=== PATIENT | female | born 1995 | race Caucasian/White ===

== ENCOUNTER 2017-06-09 08:00 | Inpatient (IN) | payer BC ==
[~2017-06-09 08:00] MED LIST: Morphine PF 10 MG/10 ML SDV ONE; Oxytocin 10 Units/1 ML SDV ONE; ceFAZolin 1 GM Vial ONE
--- NOTE | 2017-06-09 10:29 | PCM.OPNOTE ---
- General Post-Op/Procedure Note Date of Surgery/Procedure: 06/09/17 Operative Procedure(s): Repeat low transverse Findings: Mild amount of scar tissue between the fascia and the rectus. Minimal scar tissue between the bladder and uterus. Baby boy in a vertex presentation with weight of 7 lbs 5 oz and APGARS of 8 & 9 Normal appearance of the uterus and ovaries bilaterally Pre Op Diagnosis: 39 weeks gestation. History of x2 Post-Op Diagnosis: As above Anesthesia Technique: Spinal Primary Surgeon: Lora Granados Secondary Surgeon: Girish Duffy Anesthesia Provider: Carlitos Walden Pathology: Cord blood collected. Placenta discarded. Fluid Replacement, Intraop: 1,500 Output, Urine Amount: 50 EBL in mLs: 600 Complications: None Condition: Good Free Text/Narrative:: The risks, benefits, indications, potential complications, and alternatives were explained to the patient and informed consent obtained. After induction of anesthesia, the patient was placed in a supine position and then draped and prepped in the usual sterile manner. A Pfannenstiel incision was made and carried down through the subcutaneous tissue to the fascia. Fascial incision was made and extended transversely. The fascia was from the underlying rectus tissue superiorly and inferiorly. The peritoneum was identified and entered. Peritoneal incision was extended longitudinally. The utero-vesical peritoneal reflection was incised transversely and the bladder flap was bluntly freed from the lower uterine segment. A low transverse uterine incision was made sharply with a scalpel and extended bluntly in a cephalocaudad direction. A baby boy was delivered from a vertex presentation with APGARS as above. After the umbilical cord was clamped and cut cord blood was obtained for evaluation. The placenta was removed intact and appeared normal. The uterus was exteriorized and cleared of clots. The uterine outline, tubes and ovaries appeared normal. The uterine incision was closed with running locked sutures of 0 Vicryl. Hemostasis was obtained by a second imbricating layer of 0 vicryl suture. The uterus was then placed back into the abdomen. The infracolic gutters were cleared of blood clots. The fascia was then reapproximated with running sutures of 0 Vicryl. The sucutaneous tissue was irrigated with sterile warm normal saline, hemostasis obtained with cautery. The skin was reapproximated with running Subcuticular 4 -0 monocryl sutures. Instrument, sponge, and needle counts were correct prior the abdominal closure and at the conclusion of the case.
[2017-06-09] MEDS ORDERED: Citric Acid/Sodium Citrate Solution 30 ML Cup PO ONE (10:34)
[2017-06-09] MEDS ORDERED: Metoclopramide 10 MG/2 ML SDV IVPUSH ONE (10:34)
[2017-06-09] MEDS ORDERED: ceFAZolin 2 GM in Premix Bag 1 BAG IV ONE (10:34)
[2017-06-09] MEDS ORDERED: Sodium Chloride 0.9% 10 ML Syringe FLUSH PRN (10:34)
[2017-06-09] MEDS ORDERED: Lactated Ringers 1,000 ML IV SCH (10:45)
[2017-06-09] MEDS ORDERED: Oxytocin/Lactated Ringers 10 UNIT/1,000 ML BAG IV SCH (10:45)
[2017-06-09] MEDS ORDERED: Phenylephrine/Normal Saline 100 MCG/ML 10 ML Syringe ONE (12:21)
[2017-06-09] MEDS ORDERED: Oxytocin 10 Units/1 ML SDV ONE (12:21)
[2017-06-09] MEDS ORDERED: Acetaminophen/oxyCODONE 325-5 MG Tab PO PRN (12:39)
[2017-06-09] MEDS ORDERED: Naloxone 0.4 MG/ML SDV IVPUSH PRN (12:39)
[2017-06-09] MEDS ORDERED: diphenhydrAMINE 50 MG/ML SDV IVPUSH PRN ×2 (12:39→12:42)
[2017-06-09] MEDS ORDERED: Lanolin 100% Cream 7 GM Tube TOP PRN (12:39)
[2017-06-09] MEDS ORDERED: Docusate Sodium 100 MG Cap PO PRN (12:39)
[2017-06-09] MEDS ORDERED: fentaNYL 100 MCG/2 ML SDV IVPUSH PRN (12:42)
[2017-06-09] MEDS ORDERED: Ketorolac 30 MG/ML SDV IVPUSH PRN (12:42)
--- NOTE | 2017-06-09 12:44 | PCM.POSTAN ---
POST ANESTHESIA ASSESSMENT - MENTAL STATUS Mental Status: alert, oriented - VITAL SIGNS Pulse Rate: 82 SaO2: 96 Resp Rate: 14 Blood Pressure: 103/57 Temperature: 36.3 C - RESPIRATORY Respiratory Status: respiratory rate WNL, airway patent, O2 saturation stable, supplemental oxygen - CARDIOVASCULAR CV Status: pulse rate WNL, blood pressure stable - GASTROINTESTINAL GI Status: no symptoms - PAIN Pain Score: 0 - POST OP HYDRATION Hydration Status: adequate & stable - OBSERVATIONS Free Text/Narrative:: no anesthesia complications noted
[2017-06-09] MEDS ORDERED: Dextrose 5%-Lactated Ringers 1,000 ML IV SCH (12:45)
--- NOTE | 2017-06-09 12:45 | PCM.PREANE ---
Preanesthetic Assessment - Anesthesia/Transfusion/Family Hx Anesthesia History: Prior Anesthesia Without Reaction Family History of Anesthesia Reaction: No Transfusion History: No Prior Transfusion(s) - Review of Systems General: No Symptoms Pulmonary: No Symptoms Cardiovascular: No Symptoms Gastrointestinal: No symptoms Neurological: No Symptoms Other: Reports: None - Physical Assessment NPO Status Date: 06/08/17 NPO Status Time: 22:30 Pulse: 82 O2 Sat by Pulse Oximetry: 96 Respiratory Rate: 14 Blood Pressure: 103/57 Temperature: 36.3 C Vital Signs: Last Vital Signs Temp 36.3 C 06/09/17 12:44 Pulse 82 06/09/17 12:44 Resp 14 06/09/17 12:44 BP 103/57 L 06/09/17 12:44 Pulse Ox 96 06/09/17 12:44 Height: 1.57 m Weight: 74.843 kg ASA Class: 2 Mental Status: Alert & Oriented x3 Airway Class: Mallampati = 2 Dentition: Reports: Normal Dentition Thyro-Mental Finger Breadths: 3 Mouth Opening Finger Breadths: 3 ROM/Head Extension: Full Lungs: Clear to auscultation, Normal respiratory effort Cardiovascular: Regular Rhythm - Lab Values: Laboratory Last Values WBC 8.34 K/mm3 (3.98-10.04) 06/09/17 11:02 RBC 3.62 M/mm3 (3.98-5.22) L 06/09/17 11:02 Hgb 10.1 gm/L (11.2-15.7) L 06/09/17 11:02 Hct 31.2 % (34.1-44.9) L 06/09/17 11:02 MCV 86.2 fl (79.4-94.8) 06/09/17 11:02 MCH 27.9 pg (25.6-32.2) 06/09/17 11:02 MCHC 32.4 g/dl (32.2-35.5) 06/09/17 11:02 RDW Std Deviation 41.0 fL (36.4-46.3) 06/09/17 11:02 Plt Count 269 K/mm3 (182-369) 06/09/17 11:02 MPV 9.8 fl (9.4-12.3) 06/09/17 11:02 Blood Type O NEGATIVE 06/09/17 11:02 Gel Antibody Screen Positive 06/09/17 11:02 - Allergies Allergies/Adverse Reactions: Allergies Allergy/AdvReac Type Severity Reaction Status Date / Time No Known Allergies Allergy Verified 05/31/17 17:48 - Blood Blood Available: Yes Product(s) Available: None - Anesthesia Plan Pre-Op Medication Ordered: None - Acknowledgements Anesthesia Type Planned: Spinal Pt an Appropriate Candidate for the Planned Anesthesia: Yes Alternatives and Risks of Anesthesia Discussed w Pt/Guardian: Yes Pt/Guardian Understands and Agrees with Anesthesia Plan: Yes PreAnesthesia Questionnaire HEENT History: Reports: Impaired Vision Other HEENT History: wears glasses Genitourinary History: Reports: None BU[employer]ING [employer] History: Reports: - Past Surgical History HEENT Surgical History: Reports: Oral Surgery Other HEENT Surgeries/Procedures: wisdom teeth extraction Female Surgical History: Reports: Section Other Female Surgeries/Procedures: c/section x 2 - HOME MEDS Home Medications: Home Meds . [No Known Home Meds] 05/31/17 [History] - CURRENT (IN HOUSE) MEDS Current Meds: Current Medications Diphenhydramine HCl (Benadryl) 25 mg IVPUSH Q6H PRN PRN Reason: Itching or Nausea Docusate Sodium (Colace) 100 mg PO Q12H PRN PRN Reason: Constipation Emollient Ointment (Lansinoh Hpa) 0 gm TOP ASDIRECTED PRN PRN Reason: Sore Nipples Lactated Ringer's (Ringers, Lactated) 1,000 mls @ 125 mls/hr IV ASDIRECTED ON LICENSE OF [facility] Last Admin: 06/09/17 11:25 Dose: 125 mls/hr Oxytocin/Lactated Ringer's (Pitocin In Lr 10 Units/1,000 Ml) 10 unit in 1,000 mls @ 100 mls/hr IV ASDIRECTED ON LICENSE OF [facility] Dextrose/Lactated Ringer's (Dextrose 5%-Lactated Ringers) 1,000 mls @ 125 mls/ hr IV ASDIRECTED ON LICENSE OF [facility] Stop: 06/09/17 20:44 Ibuprofen (Motrin) 600 mg PO Q6H PRN PRN Reason: mild pain or fever Ketorolac Tromethamine (Toradol) 30 mg IVPUSH Q6H ON LICENSE OF [facility] Stop: 06/10/17 06:46 Naloxone HCl (Narcan) 0.1 mg IVPUSH SEECOMMENT PRN PRN Reason: Respiratory Depression Oxycodone/Acetaminophen (Percocet 325-5 Mg) 2 tab PO Q4H PRN PRN Reason: Pain (moderate 4-6) Sodium Chloride (Saline Flush) 10 ml FLUSH ASDIRECTED PRN PRN Reason: Keep Vein Open Discontinued Medications Cefazolin Sodium (Ancef) Confirm Administered Dose 2 gm .ROUTE .STK-MED ONE Stop: 06/09/17 07:19 Citric Acid/Sodium Citrate (Bicitra Solution) 30 ml PO ONETIME ONE Stop: 06/09/17 10:35 Last Admin: 06/09/17 11:25 Dose: 30 ml Cefazolin Sodium/Dextrose 2 gm (/ Premix) 50 mls @ 100 mls/hr IV ONETIME ONE Stop: 06/09/17 11:03 Metoclopramide HCl (Reglan) 10 mg IVPUSH ONETIME ONE Stop: 06/09/17 10:35 Last Admin: 06/09/17 11:25 Dose: 10 mg Morphine Sulfate (Duramorph Pf) Confirm Administered Dose 10 mg .ROUTE .STK-MED ONE Stop: 06/09/17 07:19 Oxytocin (Pitocin) Confirm Administered Dose 10 unit .ROUTE .STK-MED ONE Stop: 06/09/17 07:22 Oxytocin (Pitocin) Confirm Administered Dose 10 unit .ROUTE .STK-MED ONE Stop: 06/09/17 12:22 Phenylephrine HCl (Phenylephrine In Ns 100 Mcg/Ml) Confirm Administered Dose 1 mg .ROUTE .STK-MED ONE Stop: 06/09/17 12:22
[2017-06-09] MEDS ORDERED: Lactated Ringers 500 ML IV ONE (12:56)
[2017-06-09] MEDS: Ketorolac 30 MG/ML SDV IVPUSH SCH (18:42)
[2017-06-10] MEDS: Ketorolac 30 MG/ML SDV IVPUSH SCH ×2 (00:41→06:28)
--- NOTE | 2017-06-10 07:04 | PCM.PNPP ---
- General Info Date of Service: 06/10/17 Functional Status: Reports: pain controlled, tolerating diet, ambulating, urinating - Review of Systems General: Reports: No Symptoms Pulmonary: Reports: no symptoms Cardiovascular: Reports: No Symptoms Gastrointestinal: Reports: No symptoms Genitourinary: Reports: no symptoms Musculoskeletal: Reports: no symptoms - Patient Data Vital Signs - most recent: Last Vital Signs Temp 36.9 C 06/10/17 05:44 Pulse 89 06/10/17 05:44 Resp 12 06/10/17 05:44 BP 102/58 L 06/10/17 05:44 Pulse Ox 100 06/10/17 05:44 Weight - most recent: 74.843 kg I&O - last 24 hours: Intake & Output 06/09/17 06/10/17 06/10/17 22:59 06:59 14:59 Intake Total 1400 Output Total 150 2200 Balance -150 -800 Lab Results - last 24 hrs: Laboratory Results - last 24 hr 06/09/17 06/09/17 06/10/17 Range/Units 11:02 11:02 06:37 WBC 8.34 9.36 (3.98-10.04) K/mm3 RBC 3.62 L 3.41 L (3.98-5.22) M/mm3 Hgb 10.1 L 9.5 L (11.2-15.7) gm/L Hct 31.2 L 29.7 L (34.1-44.9) % MCV 86.2 87.1 (79.4-94.8) fl MCH 27.9 27.9 (25.6-32.2) pg MCHC 32.4 32.0 L (32.2-35.5) g/dl RDW Std Deviation 41.0 40.9 (36.4-46.3) fL Plt Count 269 222 (182-369) K/mm3 MPV 9.8 10.1 (9.4-12.3) fl Blood Type O NEGATIVE Gel Antibody Screen Positive Med Orders - Current: Current Medications Diphenhydramine HCl (Benadryl) 25 mg IVPUSH Q6H PRN PRN Reason: Itching or Nausea Docusate Sodium (Colace) 100 mg PO Q12H PRN PRN Reason: Constipation Emollient Ointment (Lansinoh Hpa) 0 gm TOP ASDIRECTED PRN PRN Reason: Sore Nipples Lactated Ringer's (Ringers, Lactated) 1,000 mls @ 125 mls/hr IV ASDIRECTED [facility] Last Admin: 06/09/17 11:25 Dose: 125 mls/hr Oxytocin/Lactated Ringer's (Pitocin In Lr 10 Units/1,000 Ml) 10 unit in 1,000 mls @ 100 mls/hr IV ASDIRECTED [facility] Ibuprofen (Motrin) 600 mg PO Q6H PRN PRN Reason: mild pain or fever Naloxone HCl (Narcan) 0.1 mg IVPUSH SEECOMMENT PRN PRN Reason: Respiratory Depression Oxycodone/Acetaminophen (Percocet 325-5 Mg) 2 tab PO Q4H PRN PRN Reason: Pain (moderate 4-6) Sodium Chloride (Saline Flush) 10 ml FLUSH ASDIRECTED PRN PRN Reason: Keep Vein Open Discontinued Medications Cefazolin Sodium (Ancef) Confirm Administered Dose 2 gm .ROUTE .STK-MED ONE Stop: 06/09/17 07:19 Citric Acid/Sodium Citrate (Bicitra Solution) 30 ml PO ONETIME ONE Stop: 06/09/17 10:35 Last Admin: 06/09/17 11:25 Dose: 30 ml Diphenhydramine HCl (Benadryl) 25 mg IVPUSH Q6H PRN PRN Reason: Itching Stop: 06/09/17 18:00 Fentanyl (Sublimaze) 50 mcg IVPUSH Q5M PRN PRN Reason: PAIN Stop: 06/09/17 18:00 Cefazolin Sodium/Dextrose 2 gm (/ Premix) 50 mls @ 100 mls/hr IV ONETIME ONE Stop: 06/09/17 11:03 Last Admin: 06/09/17 18:11 Dose: Not Given Dextrose/Lactated Ringer's (Dextrose 5%-Lactated Ringers) 1,000 mls @ 125 mls/ hr IV ASDIRECTED [facility] Stop: 06/09/17 20:44 Last Admin: 06/09/17 18:42 Dose: 125 mls/hr Lactated Ringer's (Ringers, Lactated) 500 mls @ 1,000 mls/hr IV .BOLUS ONE Stop: 06/09/17 13:25 Last Admin: 06/09/17 12:50 Dose: 1,000 mls/hr Ketorolac Tromethamine (Toradol) 30 mg IVPUSH Q6H [facility] Stop: 06/10/17 06:46 Last Admin: 06/10/17 06:28 Dose: 30 mg Ketorolac Tromethamine (Toradol) 30 mg IVPUSH ONETIME PRN PRN Reason: Pain Stop: 06/09/17 18:00 Last Admin: 06/09/17 13:10 Dose: 30 mg Metoclopramide HCl (Reglan) 10 mg IVPUSH ONETIME ONE Stop: 06/09/17 10:35 Last Admin: 06/09/17 11:25 Dose: 10 mg Morphine Sulfate (Duramorph Pf) Confirm Administered Dose 10 mg .ROUTE .STK-MED ONE Stop: 06/09/17 07:19 Oxytocin (Pitocin) Confirm Administered Dose 10 unit .ROUTE .STK-MED ONE Stop: 06/09/17 07:22 Oxytocin (Pitocin) Confirm Administered Dose 10 unit .ROUTE .STK-MED ONE Stop: 06/09/17 12:22 Phenylephrine HCl (Phenylephrine In Ns 100 Mcg/Ml) Confirm Administered Dose 1 mg .ROUTE .STK-MED ONE Stop: 06/09/17 12:22 - Infant Interaction Infant Disposition, : in Room with Family Interaction: Holding Infant Infant Feeding: Breastfed ; Nursed Well Support Person: - Recovery Exam Fundal Tone: Firm Fundal Level: 2 Fingerbreadths Below Umbilicus Fundal Placement: Midline Lochia Amount: Scant Lochia Color: Rubra/Red Perineum Description: Intact, Minimal Bruising/Swelling Episiotomy/Laceration: None Bladder Status: Indwelling Catheter in Place Urinary Elimination: Indwelling Catheter - Exam General: alert, oriented, cooperative Lungs: Clear to auscultation, Normal respiratory effort Cardiovascular: Regular Rate, Regular Rhythm GI/Abdominal Exam: Soft, Tender (appropriate post op) Extremities: Normal Inspection Skin: warm, dry, intact Wound/Incisions: healing well, dressing dry and intact - Problem List & Annotations (1) 39 weeks gestation of SNOMED Code(s): 73671268 Code(s): Z3A.39 - 39 WEEKS GESTATION OF Status: Acute Current Visit: Yes (2) History of SNOMED Code(s): 567808147 Code(s): Z98.891 - HISTORY OF UTERINE SCAR FROM PREVIOUS SURGERY Status: Acute Current Visit: Yes (3) S/P repeat low transverse SNOMED Code(s): 915673351, 751620282, 860147843, 175707445 Code(s): Z98.891 - HISTORY OF UTERINE SCAR FROM PREVIOUS SURGERY Status: Acute Current Visit: Yes (4) Rh negative state in antepartum period SNOMED Code(s): 621833462, 175679868 Code(s): O09.899 - SUPERVISION OF OTHER HIGH RISK PREGNANCIES, UNSP TRIMESTER Status: Acute Current Visit: Yes Qualifiers: Trimester: third trimester Qualified Code(s): O09.893 - Supervision of other high risk pregnancies, third trimester - Problem List Review Problem List Initiated/Reviewed/Updated: Yes - My Orders Last 24 Hours: My Active Orders 06/09/17 10:34 Patient Status [ADT] Routine Procedure Site Prep Instruct [RC] ASDIRECTED Urinary Catheter Assessment [RC] ASDIRECTED Verify Patient Consent Obtain [RC] PER UNIT ROUTINE Vital Signs [RC] 00,04,08,12,16,20 Sodium Chloride 0.9% [Saline Flush] 10 ml FLUSH ASDIRECTED PRN Peripheral IV Insertion Adult [OM.PC] Routine Schedule Procedure [COMM] Per Unit Routine Resuscitation Status Routine 06/09/17 10:35 Peripheral IV Care [RC] Q2HR 06/09/17 10:45 Lactated Ringers [Ringers, Lactated] 1,000 ml IV ASDIRECTED Oxytocin/Lactated Ringers [Pitocin in LR 10 Units/1,000 ML] 10 unit in 1,000 ml IV ASDIRECTED 06/09/17 11:02 ANTIBODY IDENTIFICATION [BBK] Stat PATIENT RETYPE [BBK] Stat TYPE AND SCREEN [BBK] Stat 06/09/17 12:39 Activity as Tolerated [RC] .Routine Intake and Output [RC] Q4H Notify Provider Intake and Out [RC] ASDIRECTED Acetaminophen/oxyCODONE [Percocet 325-5 MG] 2 tab PO Q4H PRN Docusate Sodium [Colace] 100 mg PO Q12H PRN Lanolin [Lansinoh HPA] See Dose Instructions TOP ASDIRECTED PRN Naloxone [Narcan] 0.1 mg IVPUSH SEECOMMENT PRN diphenhydrAMINE [Benadryl] 25 mg IVPUSH Q6H PRN Breast Pump [WOMSER] Per Unit Routine 06/09/17 12:40 Communication Order [RC] PER UNIT ROUTINE Communication Order [RC] PER UNIT ROUTINE May Shower [RC] PER UNIT ROUTINE RT Incentive Spirometry [RC] Q2HWA Assess Lochia [WOMSER] Per Unit Routine Assess Uterine Involution [WOMSER] Per Unit Routine Heat Therapy [OM.PC] Per Unit Routine Sequential Compression Device [OM.PC] Per Unit Routine 06/09/17 12:41 Antiembolic Devices [RC] PER UNIT ROUTINE 06/09/17 Breakfast Nothing Per Oral Diet [DIET] 06/09/17 Lunch Regular Diet [DIET] 06/10/17 12:40 Urinary Catheter Removal [RC] Per Unit Routine 06/10/17 13:00 Ibuprofen [Motrin] 600 mg PO Q6H PRN - Assessment Assessment:: 21 y/o G3 now P3003 POD#1 from RLTCS at 39 0/7 wks - Plan Plan:: S/p * Routine cares * Encourage breast feeding * Potentially interested in discharge today, will see how day goes and if baby able to leave Rh negative * Baby O negative, no need for Rhogam Lora Granados MD
--- NOTE | 2017-06-10 08:32 | PCM48HPAN ---
Post Anesthesia Note - EVALUATION WITHIN 48HRS OF ANESTHETIC Vital Signs in Normal Range: Yes Patient Participated in Evaluation: Yes Respiratory Function Stable: Yes Airway Patent: Yes Cardiovascular Function Stable: Yes Hydration Status Stable: Yes Pain Control Satisfactory: Yes Nausea and Vomiting Control Satisfactory: Yes Mental Status Recovered: Yes - COMMENTS/OBSERVATIONS Free Text/Narrative:: Pt reports doing well after . full resolution of spinal. taking p.o. up to restroom, no problems ambulating. no n/v, f/c. no headache
--- NOTE | 2017-06-10 10:25 | PCM.DCSUM1 ---
Discharge Summary - Discharge Data Discharge Date: 06/10/17 Discharge Disposition: Home, Self-Care 01 Condition: Good - Discharge Diagnosis/Problem(s) (1) 39 weeks gestation of SNOMED Code(s): 25651831 ICD Code: Z3A.39 - 39 WEEKS GESTATION OF Status: Acute (2) History of SNOMED Code(s): 369517634 ICD Code: Z98.891 - HISTORY OF UTERINE SCAR FROM PREVIOUS SURGERY Status: Acute (3) S/P repeat low transverse SNOMED Code(s): 101793756, 026346756, 324328651, 283244231 ICD Code: Z98.891 - HISTORY OF UTERINE SCAR FROM PREVIOUS SURGERY Status: Acute (4) Rh negative state in antepartum period SNOMED Code(s): 584150996, 994064824 ICD Code: O09.899 - SUPERVISION OF OTHER HIGH RISK PREGNANCIES, UNSP TRIMESTER Status: Acute Qualifiers: Trimester: third trimester Qualified Code(s): O09.893 - Supervision of other high risk pregnancies, third trimester - Patient Summary/Data Operative Procedure(s) Performed: Repeat low transverse Complications: None Consults: None Recommended Follow-up Testing/Procedures: Follow up in 1-2 weeks for an incision check and in 5-6 weeks for check Hospital Course: 21 y/o presented at 39 0/7 wks for planned RLTCS. This was uncomplicated. See procedure note. she did well and requested discharge home on POD#1. She was meeting all goals and so this was done. - Patient Instructions Diet: Regular Diet as Tolerated Activity: No Lifting Over 20 Pounds Activity, Other: Pelvic rest for 6 weeks Driving: Do Not Drive (while taking narcotics ) Showering/Bathing: May Shower, No Tub Bathing/Swimming Wound/Incision Care: Keep Operative Site/Wound Site Clean and Dry Notify Provider of: Fever, Increased Pain, Swelling and Redness, Drainage, Nausea and/or Vomiting - Discharge Plan Prescriptions/Med Rec: Acetaminophen/oxyCODONE [Percocet 325-5 MG] 1 - 2 tab PO Q4H PRN #25 tablet PRN Reason: Pain Home Medications: Home Meds Pnv No.122/Iron/Folic Acid [ Multi Tablet] 1 each PO DAILY 06/09/17 [ History] Acetaminophen/oxyCODONE [Percocet 325-5 MG] 1 - 2 tab PO Q4H PRN #25 tablet [Rx] Docusate Sodium [Colace] 100 mg PO Q12H PRN #0 cap 06/10/17 [Rx] Ibuprofen [IJD: Ibuprofen] 600 mg PO Q6H PRN #0 tablet 06/10/17 [Rx] Patient Handouts: Delivery, Care After, Breast Pumping Tips, Easy-to- Read, Challenges and Solutions Referrals: Lora Granados MD [Physician] - (1-2 weeks for incision check 5-6 weeks for check ) - Discharge Summary/Plan Comment DC Time >30 min.: No - Patient Data Vitals - Most Recent: Last Vital Signs Temp 36.8 C 06/10/17 09:12 Pulse 105 H 06/10/17 09:12 Resp 14 06/10/17 09:12 BP 109/58 L 06/10/17 09:12 Pulse Ox 98 06/10/17 09:12 Weight - Most Recent: 74.843 kg I&O - Last 24 hours: Intake & Output 06/09/17 06/10/17 06/10/17 22:59 06:59 14:59 Intake Total 1400 Output Total 150 2200 Balance -150 -800 Lab Results - Last 24 hrs: Laboratory Results - last 24 hr 06/09/17 06/09/17 06/10/17 Range/Units 11:02 11:02 06:37 WBC 8.34 9.36 (3.98-10.04) K/mm3 RBC 3.62 L 3.41 L (3.98-5.22) M/mm3 Hgb 10.1 L 9.5 L (11.2-15.7) gm/L Hct 31.2 L 29.7 L (34.1-44.9) % MCV 86.2 87.1 (79.4-94.8) fl MCH 27.9 27.9 (25.6-32.2) pg MCHC 32.4 32.0 L (32.2-35.5) g/dl RDW Std Deviation 41.0 40.9 (36.4-46.3) fL Plt Count 269 222 (182-369) K/mm3 MPV 9.8 10.1 (9.4-12.3) fl Blood Type O NEGATIVE Gel Antibody Screen Positive Med Orders - Current: Current Medications Diphenhydramine HCl (Benadryl) 25 mg IVPUSH Q6H PRN PRN Reason: Itching or Nausea Docusate Sodium (Colace) 100 mg PO Q12H PRN PRN Reason: Constipation Emollient Ointment (Lansinoh Hpa) 0 gm TOP ASDIRECTED PRN PRN Reason: Sore Nipples Lactated Ringer's (Ringers, Lactated) 1,000 mls @ 125 mls/hr IV ASDIRECTED [facility] Last Admin: 06/09/17 11:25 Dose: 125 mls/hr Oxytocin/Lactated Ringer's (Pitocin In Lr 10 Units/1,000 Ml) 10 unit in 1,000 mls @ 100 mls/hr IV ASDIRECTED [facility] Ibuprofen (Motrin) 600 mg PO Q6H PRN PRN Reason: mild pain or fever Naloxone HCl (Narcan) 0.1 mg IVPUSH SEECOMMENT PRN PRN Reason: Respiratory Depression Oxycodone/Acetaminophen (Percocet 325-5 Mg) 2 tab PO Q4H PRN PRN Reason: Pain (moderate 4-6) Sodium Chloride (Saline Flush) 10 ml FLUSH ASDIRECTED PRN PRN Reason: Keep Vein Open Discontinued Medications Cefazolin Sodium (Ancef) Confirm Administered Dose 2 gm .ROUTE .STK-MED ONE Stop: 06/09/17 07:19 Citric Acid/Sodium Citrate (Bicitra Solution) 30 ml PO ONETIME ONE Stop: 06/09/17 10:35 Last Admin: 06/09/17 11:25 Dose: 30 ml Diphenhydramine HCl (Benadryl) 25 mg IVPUSH Q6H PRN PRN Reason: Itching Stop: 06/09/17 18:00 Fentanyl (Sublimaze) 50 mcg IVPUSH Q5M PRN PRN Reason: PAIN Stop: 06/09/17 18:00 Cefazolin Sodium/Dextrose 2 gm (/ Premix) 50 mls @ 100 mls/hr IV ONETIME ONE Stop: 06/09/17 11:03 Last Admin: 06/09/17 18:11 Dose: Not Given Dextrose/Lactated Ringer's (Dextrose 5%-Lactated Ringers) 1,000 mls @ 125 mls/ hr IV ASDIRECTED [facility] Stop: 06/09/17 20:44 Last Admin: 06/09/17 18:42 Dose: 125 mls/hr Lactated Ringer's (Ringers, Lactated) 500 mls @ 1,000 mls/hr IV .BOLUS ONE Stop: 06/09/17 13:25 Last Admin: 06/09/17 12:50 Dose: 1,000 mls/hr Ketorolac Tromethamine (Toradol) 30 mg IVPUSH Q6H JIMI Stop: 06/10/17 06:46 Last Admin: 06/10/17 06:28 Dose: 30 mg Ketorolac Tromethamine (Toradol) 30 mg IVPUSH ONETIME PRN PRN Reason: Pain Stop: 06/09/17 18:00 Last Admin: 06/09/17 13:10 Dose: 30 mg Metoclopramide HCl (Reglan) 10 mg IVPUSH ONETIME ONE Stop: 06/09/17 10:35 Last Admin: 06/09/17 11:25 Dose: 10 mg Morphine Sulfate (Duramorph Pf) Confirm Administered Dose 10 mg .ROUTE .STK-MED ONE Stop: 06/09/17 07:19 Oxytocin (Pitocin) Confirm Administered Dose 10 unit .ROUTE .STK-MED ONE Stop: 06/09/17 07:22 Oxytocin (Pitocin) Confirm Administered Dose 10 unit .ROUTE .STK-MED ONE Stop: 06/09/17 12:22 Phenylephrine HCl (Phenylephrine In Ns 100 Mcg/Ml) Confirm Administered Dose 1 mg .ROUTE .STK-MED ONE Stop: 06/09/17 12:22 *Q Meaningful Use (DIS) - VTE *Q VTE Criteria *Q: - Stroke *Q Stroke Criteria *Q: - AMI *Q AMI Criteria *Q:
[2017-06-10] MEDS ORDERED: Simethicone 80 MG Tab.Chew PO PRN (12:44)
[2017-06-10] MEDS ORDERED: Ibuprofen 600 MG Tab PO PRN (13:00)
[2017-06-10 13:40] VITALS: BP 122/65
== END 2017-06-10 16:10 | disposition home or self-care (01) | DRG 540 ==
LOC: JD.ICU 10:00 → JD.OB 14:59
PROVIDERS: ADMIT Obstetrics & Gynecology; ATTEND Obstetrics & Gynecology
PROC: 10D00Z1 Extraction of Products of Conception, Low, Open Approach (ICD-10-PCS; principal; 2017-06-09)
DX: O34.211 Maternal care for low transverse scar from previous cesarean delivery (principal); N85.8 Other specified noninflammatory disorders of uterus; O36.8130 Decreased fetal movements, third trimester, not applicable or unspecified; Z3A.39 39 weeks gestation of pregnancy; Z37.0 Single live birth
CPT/HCPCS: 01961; 36415; 85027; 86850; 86870; 86900; 86901; A9270-GY; J0690; J1885; J2270; J2590; J2765; J7042; J7120

== ENCOUNTER 2021-02-27 05:34 | Inpatient (IN) | payer MEDICAID, OTHER ==
[~2021-02-27 05:34] MED LIST changes: -Morphine PF 10 MG/10 ML SDV ONE; -Oxytocin 10 Units/1 ML SDV ONE; +Sodium Chloride 0.9% 10 ML Syringe FLUSH PRN; -ceFAZolin 1 GM Vial ONE
[2021-02-27] MEDS: Lactated Ringers 1,000 ML IV SCH ×3 (06:00→08:43)
[2021-02-27] MEDS ORDERED: ceFAZolin 1 GM Vial ONE (06:48)
[2021-02-27] MEDS ORDERED: Oxytocin 10 Units/1 ML SDV ONE (06:48)
[2021-02-27] MEDS ORDERED: fentaNYL 100 MCG/2 ML SDV ONE (06:48)
[2021-02-27] MEDS ORDERED: Morphine PF 10 MG/10 ML SDV ONE (06:49)
[2021-02-27] MEDS ORDERED: Ondansetron 4 MG/2 ML SDV ONE (06:49)
[2021-02-27] MEDS ORDERED: ceFAZolin 2 GM in Premix Bag 1 BAG IV ONE (07:00)
[2021-02-27] MEDS ORDERED: Metoclopramide 10 MG/2 ML SDV IVPUSH ONE (07:00)
[2021-02-27] MEDS ORDERED: Citric Acid/Sodium Citrate Solution 30 ML Cup PO ONE (07:00)
[2021-02-27] MEDS ORDERED: Oxytocin/Lactated Ringers 10 UNIT/1,000 ML BAG IV SCH (07:00)
--- NOTE | 2021-02-27 07:06 | PCM.OPNOTE ---
- General Post-Op/Procedure Note Date of Surgery/Procedure: 02/27/21 Operative Procedure(s): Repeat low transverse Findings: Minimal scarring between the rectus and fascia. Moderate scarring between the uterus and lower uterine segment. Baby boy in a vertex presentation. APGARS of 9 & 9. Weight of 6 lbs 6 oz. Normal appearance of the uterus, fallopian tubes, and ovaries. Pre Op Diagnosis: History of x3. 39 1/7 wks Post-Op Diagnosis: Same Anesthesia Technique: Spinal Primary Surgeon: Lora Granados Secondary Surgeon: Brenna Peace Anesthesia Provider: Moreno Michaud Reason Nut Sorter Was Necessary: Speed, safety of procedure Pathology: Cord blood collected. Placenta discarded Fluid Replacement, Intraop: 2,000 Output, Urine Amount: 200 EBL in mLs: 500 Complications: None Condition: Good Free Text/Narrative:: The risks, benefits, indications, potential complications, and alternatives were explained to the patient and informed consent obtained. After induction of anesthesia, the patient was placed in a supine position and then draped and prepped in the usual sterile manner. A Pfannenstiel incision was made and carried down through the subcutaneous tissue to the fascia. Fascial incision was made and extended transversely. The fascia was from the underlying rectus tissue superiorly and inferiorly. The peritoneum was identified and entered. Peritoneal incision was extended longitudinally. The utero-vesical peritoneal reflection was incised transversely and the bladder flap was bluntly freed from the lower uterine segment. A low transverse uterine incision was made sharply with a scalpel and extended bluntly in a cephalocaudad direction. A baby boy was delivered from vertex presentation with APGARS as above. After the umbilical cord was clamped and cut cord blood was obtained for evaluation. The placenta was removed intact and appeared normal. The uterus was exteriorized and cleared of clots. The uterine outline, tubes and ovaries appeared normal. The uterine incision was closed with running locked sutures of 0 Vicryl. The uterus was then placed back into the abdomen. The infracolic gutters were cleared of blood clots. The fascia was then reapproximated with running sutures of 0 Vicryl. The subcutaneous tissue was irrigated with sterile warm normal saline, hemostasis obtained with cautery. This layer was also closed with a running 0 Vicryl. The skin was reapproximated with running subcuticular 4-0 Monocryl sutures. The incision was then sealed with Dermabond. Instrument, sponge, and needle counts were correct prior the abdominal closure and at the conclusion of the case.
--- NOTE | 2021-02-27 07:22 | PCM.PREANE ---
Preanesthetic Assessment - Procedure Proposed Procedure: Repeat - Anesthesia/Transfusion/Family Hx Anesthesia History: Prior Anesthesia Without Reaction Transfusion History: No Prior Transfusion(s) - Review of Systems General: No Symptoms Pulmonary: No Symptoms Cardiovascular: No Symptoms Gastrointestinal: No Symptoms Neurological: No Symptoms Other: Reports: None - Physical Assessment NPO Status Date: 02/26/21 NPO Status Time: 22:30 Vital Signs: Last Vital Signs Temp 97.9 F 02/27/21 05:51 Pulse 89 02/27/21 05:51 Resp 16 02/27/21 05:51 BP 101/72 02/27/21 05:51 Pulse Ox 95 02/27/21 05:51 Height: 1.57 m Weight: 68.946 kg ASA Class: 2 Mental Status: Alert & Oriented x3 Dentition: Reports: Normal Dentition (full braces upper and lower) Thyro-Mental Finger Breadths: 3 Mouth Opening Finger Breadths: 3 ROM/Head Extension: Full Lungs: Clear to Auscultation, Normal Respiratory Effort Cardiovascular: Regular Rate, Regular Rhythm - Lab Values: Laboratory Last Values WBC 12.57 K/mm3 (3.98-10.04) H 02/27/21 06:00 RBC 3.68 M/mm3 (3.98-5.22) L 02/27/21 06:00 Hgb 11.1 gm/dl (11.2-15.7) L D 02/27/21 06:00 Hct 34.4 % (34.1-44.9) 02/27/21 06:00 MCV 93.5 fl (79.4-94.8) D 02/27/21 06:00 MCH 30.2 pg (25.6-32.2) 02/27/21 06:00 MCHC 32.3 g/dl (32.2-35.5) 02/27/21 06:00 RDW Std Deviation 46.7 fL (36.4-46.3) H 02/27/21 06:00 Plt Count 303 K/mm3 (182-369) D 02/27/21 06:00 MPV 10.3 fl (9.4-12.3) 02/27/21 06:00 Neut % (Auto) 71.7 % (34.0-71.1) H 02/27/21 06:00 Lymph % (Auto) 19.1 % (19.3-51.7) L 02/27/21 06:00 [place] % (Auto) 7.0 % (4.7-12.5) 02/27/21 06:00 Eos % (Auto) 1.6 (0.7-5.8) 02/27/21 06:00 Baso % (Auto) 0.1 % (0.1-1.2) 02/27/21 06:00 Neut # (Auto) 9.02 K/mm3 (1.56-6.13) H 02/27/21 06:00 Lymph # (Auto) 2.40 K/mm3 (1.18-3.74) 02/27/21 06:00 [place] # (Auto) 0.88 K/mm3 (0.24-0.36) H 02/27/21 06:00 Eos # (Auto) 0.20 K/mm3 (0.04-0.36) 02/27/21 06:00 Baso # (Auto) 0.01 K/mm3 (0.01-0.08) 02/27/21 06:00 Urine Opiates Screen Negative (IEVRWT=219) 02/27/21 06:50 Ur Buprenorphine Scrn Negative (CUTOFF=10) 02/27/21 06:50 Ur Oxycodone Screen Negative (EXY0FR=105) 02/27/21 06:50 Urine Methadone Screen Negative (KQRUHM=511) 02/27/21 06:50 Ur Propoxyphene Screen Negative (COFANI=091) 02/27/21 06:50 Ur Barbiturates Screen Negative (FPAHNI=834) 02/27/21 06:50 Ur Tricyclics Screen Negative (HXXYOP=436) 02/27/21 06:50 Ur Phencyclidine Scrn Negative (CUTOFF=25) 02/27/21 06:50 Ur Amphetamine Screen Negative (AGOUDZ=705) 02/27/21 06:50 U Methamphetamines Scrn Negative (TRCUTR=643) 02/27/21 06:50 U Benzodiazepines Scrn Negative (EYWRGH=677) 02/27/21 06:50 U Cocaine Metab Screen Negative (JMFMII=897) 02/27/21 06:50 U Marijuana (THC) Screen Presumptive positive (CUTOFF=50) H 02/27/21 06:50 SARS-CoV-2 RNA (MARIANA) Negative (NEGATIVE) 02/27/21 05:50 Blood Type O NEGATIVE 02/27/21 06:00 - Allergies Allergies/Adverse Reactions: Allergies Allergy/AdvReac Type Severity Reaction Status Date / Time No Known Allergies Allergy Verified 02/27/21 06:57 - Acknowledgements Anesthesia Type Planned: Spinal Pt an Appropriate Candidate for the Planned Anesthesia: Yes Alternatives and Risks of Anesthesia Discussed w Pt/Guardian: Yes Pt/Guardian Understands and Agrees with Anesthesia Plan: Yes PreAnesthesia Questionnaire - Past Health History Medical/Surgical History: Denies Medical/Surgical History HEENT History: Reports: Impaired Vision Other HEENT History: wears glasses Cardiovascular History: Reports: None Respiratory History: Reports: None Gastrointestinal History: Reports: None Genitourinary History: VEST BASTER History: Reports: Musculoskeletal History: Reports: None Neurological History: Reports: None Psychiatric History: Reports: Other (See Below) Other Psychiatric History: Evidence of self harm Endocrine/Metabolic History: Reports: None Hematologic History: Reports: None Immunologic History: Reports: None Oncologic (Cancer) History: Reports: None Dermatologic History: Reports: None - Past Surgical History Head Surgeries/Procedures: Reports: None HEENT Surgical History: Reports: Oral Surgery Other HEENT Surgeries/Procedures: wisdom teeth extraction Cardiovascular Surgical History: Reports: None Respiratory Surgical History: Reports: None GI Surgical History: Reports: None Female Surgical History: Reports: Section Other Female Surgeries/Procedures: c/section x 2 Endocrine Surgical History: Reports: None Neurological Surgical History: Reports: None Musculoskeletal Surgical History: Reports: None Oncologic Surgical History: Reports: None Dermatological Surgical History: Reports: None - SUBSTANCE USE Tobacco Use Status *Q: Current Every Day Tobacco User Tobacco Use Within Last Twelve Months: Smokeless Tobacco Second Hand Smoke Exposure: No Recreational Drug Use History: Yes Recreational Drug Type: Reports: Marijuana/Hashish - CURRENT (IN HOUSE) MEDS Current Meds: Current Medications Cefazolin Sodium/Dextrose 2 gm (/ Premix) 50 mls @ 100 mls/hr IV ONETIME ONE Stop: 02/27/21 07:29 Oxytocin/Lactated Ringer's (Pitocin In Lr 10 Units/1,000 Ml) 10 unit in 1,000 mls @ 100 mls/hr IV ASDIRECTED [facility]; Protocol Lactated Ringer's (Ringers, Lactated) 1,000 mls @ 125 mls/hr IV ASDIRECTED [facility] Sodium Chloride (Sodium Chloride 0.9% 10 Ml Syringe) 10 ml FLUSH ASDIRECTED PRN PRN Reason: Keep Vein Open Discontinued Medications Cefazolin Sodium (Cefazolin 1 Gm Vial) Confirm Administered Dose 2 gm .ROUTE .STK-MED ONE Stop: 02/27/21 06:49 Citric Acid/Sodium Citrate (Citric Acid/Sodium Citrate Solution 30 Ml Cup) 30 ml PO ONETIME ONE Stop: 02/27/21 07:01 Last Admin: 02/27/21 07:15 Dose: 30 ml Documented by: Fentanyl (Fentanyl 100 Mcg/2 Ml Sdv) Confirm Administered Dose 100 mcg .ROUTE .STK-MED ONE Stop: 02/27/21 06:49 Metoclopramide HCl (Metoclopramide 10 Mg/2 Ml Sdv) 10 mg IVPUSH ONETIME ONE Stop: 02/27/21 07:01 Last Admin: 02/27/21 07:15 Dose: 10 mg Documented by: Morphine Sulfate (Morphine Pf 10 Mg/10 Ml Sdv) Confirm Administered Dose 10 mg .ROUTE .STK-MED ONE Stop: 02/27/21 06:50 Ondansetron HCl (Ondansetron 4 Mg/2 Ml Sdv) Confirm Administered Dose 8 mg .ROUTE .STK-MED ONE Stop: 02/27/21 06:50 Oxytocin (Oxytocin 10 Units/1 Ml Sdv) Confirm Administered Dose 20 unit .ROUTE .STK-MED ONE Stop: 02/27/21 06:49
[2021-02-27] MEDS ORDERED: Lactated Ringers 1,000 ML ONE (07:55)
[2021-02-27] MEDS ORDERED: Ketorolac 30 MG/ML SDV ONE (08:12)
[2021-02-27] MEDS ORDERED: fentaNYL 100 MCG/2 ML SDV IVPUSH PRN (08:26)
[2021-02-27] MEDS ORDERED: Ondansetron 4 MG/2 ML SDV IVPUSH PRN (08:26)
[2021-02-27] MEDS ORDERED: diphenhydrAMINE 50 MG/ML SDV IVPUSH PRN ×2 (08:26→09:45)
--- NOTE | 2021-02-27 08:37 | PCM.POSTAN ---
POST ANESTHESIA ASSESSMENT - MENTAL STATUS Mental Status: Alert, Oriented - VITAL SIGNS Vital Signs: Last Vital Signs 97/56, 73 HR, 98%, 7RR, 97.1F - RESPIRATORY Respiratory Status: Respiratory Rate WNL, Airway Patent, O2 Saturation Stable, Depressed Resp Rate - CARDIOVASCULAR CV Status: Pulse Rate WNL, Blood Pressure Stable - GASTROINTESTINAL GI Status: No Symptoms - PAIN Pain Score: 0 (post SAB) - POST OP HYDRATION Hydration Status: Adequate & Stable
[2021-02-27] MEDS ORDERED: Docusate Sodium 100 MG Cap PO PRN (09:45)
[2021-02-27] MEDS ORDERED: Ondansetron 4 MG/2 ML SDV IV PRN (09:45)
[2021-02-27] MEDS ORDERED: Dextrose 5%-Lactated Ringers 1,000 ML IV SCH (09:45)
[2021-02-27] MEDS: Ketorolac 30 MG/ML SDV IVPUSH SCH ×2 (14:02→20:44)
[2021-02-28] MEDS: Ketorolac 30 MG/ML SDV IVPUSH SCH (04:28)
--- NOTE | 2021-02-28 07:20 | PCM.PNPP ---
- General Info Date of Service: 02/28/21 Functional Status: Reports: Pain Controlled, Tolerating Diet, Ambulating, Urinating - Review of Systems General: Reports: No Symptoms Pulmonary: Reports: No Symptoms Cardiovascular: Reports: No Symptoms Gastrointestinal: Reports: Abdominal Pain (managed with medications ) Genitourinary: Reports: No Symptoms Musculoskeletal: Reports: No Symptoms Neurological: Reports: No Symptoms - Patient Data Vital Signs - Most Recent: Last Vital Signs Temp 36.2 C 02/28/21 05:00 Pulse 64 02/28/21 05:00 Resp 14 02/28/21 05:00 BP 110/61 02/28/21 05:00 Pulse Ox 98 02/28/21 05:00 Weight - Most Recent: 68.946 kg I&O - Last 24 Hours: Intake & Output 02/27/21 02/28/21 02/28/21 22:59 06:59 14:59 Output Total 1550 1350 Balance -1550 -1350 Lab Results - Last 24 Hours: Laboratory Results - last 24 hr 02/27/21 02/27/21 02/27/21 Range/Units 06:00 06:00 06:00 WBC (3.98-10.04) K/mm3 RBC (3.98-5.22) M/mm3 Hgb (11.2-15.7) gm/dl Hct (34.1-44.9) % MCV (79.4-94.8) fl MCH (25.6-32.2) pg MCHC (32.2-35.5) g/dl RDW Std Deviation (36.4-46.3) fL Plt Count (182-369) K/mm3 MPV (9.4-12.3) fl RPR Non-reactive (NONREACTIVE) Blood Type O NEGATIVE Gel Antibody Screen Positive Screen 0 ros/5 flds - neg RhIG Candidate? Yes 02/28/21 Range/Units 05:20 WBC 11.90 H (3.98-10.04) K/mm3 RBC 3.87 L (3.98-5.22) M/mm3 Hgb 11.6 (11.2-15.7) gm/dl Hct 36.4 (34.1-44.9) % MCV 94.1 (79.4-94.8) fl MCH 30.0 (25.6-32.2) pg MCHC 31.9 L (32.2-35.5) g/dl RDW Std Deviation 46.6 H (36.4-46.3) fL Plt Count 281 (182-369) K/mm3 MPV 10.2 (9.4-12.3) fl RPR (NONREACTIVE) Blood Type Gel Antibody Screen Screen RhIG Candidate? Med Orders - Current: Current Medications Diphenhydramine HCl (Diphenhydramine 50 Mg/Ml Sdv) 25 mg IVPUSH Q6H PRN PRN Reason: Pruritis Diphenhydramine HCl (Diphenhydramine 50 Mg/Ml Sdv) 25 mg IVPUSH Q6H PRN PRN Reason: Itching or Nausea Docusate Sodium (Docusate Sodium 100 Mg Cap) 100 mg PO Q12H PRN PRN Reason: Constipation Fentanyl (Fentanyl 100 Mcg/2 Ml Sdv) 50 mcg IVPUSH Q5M PRN PRN Reason: Pain Ondansetron HCl (Ondansetron 4 Mg/2 Ml Sdv) 4 mg IV Q8H PRN PRN Reason: Nausea/Vomiting Oxycodone/Acetaminophen (Acetaminophen/Oxycodone 325-5 Mg Tab) 1 tab PO Q4H PRN PRN Reason: Pain (moderate 4-6) Oxycodone/Acetaminophen (Acetaminophen/Oxycodone 325-5 Mg Tab) 2 tab PO Q4H PRN PRN Reason: Pain (severe 7-10) Discontinued Medications Cefazolin Sodium (Cefazolin 1 Gm Vial) Confirm Administered Dose 2 gm .ROUTE .STK-MED ONE Stop: 02/27/21 06:49 Citric Acid/Sodium Citrate (Citric Acid/Sodium Citrate Solution 30 Ml Cup) 30 ml PO ONETIME ONE Stop: 02/27/21 07:01 Last Admin: 02/27/21 07:15 Dose: 30 ml Documented by: Fentanyl (Fentanyl 100 Mcg/2 Ml Sdv) Confirm Administered Dose 100 mcg .ROUTE .STK-MED ONE Stop: 02/27/21 06:49 Cefazolin Sodium/Dextrose 2 gm (/ Premix) 50 mls @ 100 mls/hr IV ONETIME ONE Stop: 02/27/21 07:29 Oxytocin/Lactated Ringer's (Pitocin In Lr 10 Units/1,000 Ml) 10 unit in 1,000 mls @ 100 mls/hr IV ASDIRECTED [facility]; Protocol Lactated Ringer's (Ringers, Lactated) 1,000 mls @ 125 mls/hr IV ASDIRECTED [facility] Last Admin: 02/27/21 08:43 Dose: 500 mls/hr Documented by: Lactated Ringer's (Ringers, Lactated) Confirm Administered Dose 1,000 mls @ as directed .ROUTE .STK-MED ONE Stop: 02/27/21 07:56 Dextrose/Lactated Ringer's (Dextrose 5%-Lactated Ringers) 1,000 mls @ 125 mls/hr IV ASDIRECTED [facility] Stop: 02/27/21 17:44 Last Admin: 02/27/21 13:26 Dose: 125 mls/hr Documented by: Ketorolac Tromethamine (Ketorolac 30 Mg/Ml Sdv) Confirm Administered Dose 30 mg .ROUTE .STK-MED ONE Stop: 02/27/21 08:13 Ketorolac Tromethamine (Ketorolac 30 Mg/Ml Sdv) 30 mg IVPUSH Q6H [facility] Stop: 02/28/21 02:31 Last Admin: 02/28/21 04:28 Dose: 30 mg Documented by: Metoclopramide HCl (Metoclopramide 10 Mg/2 Ml Sdv) 10 mg IVPUSH ONETIME ONE Stop: 02/27/21 07:01 Last Admin: 02/27/21 07:15 Dose: 10 mg Documented by: Miscellaneous Medication (Phenylephrine Hcl In 0.9% Nacl 1 Mg/10 Ml Syringe) Confirm Administered Dose 1 mg .ROUTE .STK-MED ONE Stop: 02/27/21 07:48 Morphine Sulfate (Morphine Pf 10 Mg/10 Ml Sdv) Confirm Administered Dose 10 mg .ROUTE .STK-MED ONE Stop: 02/27/21 06:50 Ondansetron HCl (Ondansetron 4 Mg/2 Ml Sdv) Confirm Administered Dose 8 mg .ROUTE .STK-MED ONE Stop: 02/27/21 06:50 Ondansetron HCl (Ondansetron 4 Mg/2 Ml Sdv) 4 mg IVPUSH ONETIME PRN PRN Reason: Nausea/Vomiting Oxytocin (Oxytocin 10 Units/1 Ml Sdv) Confirm Administered Dose 20 unit .ROUTE .STK-MED ONE Stop: 02/27/21 06:49 Sodium Chloride (Sodium Chloride 0.9% 10 Ml Syringe) 10 ml FLUSH ASDIRECTED PRN PRN Reason: Keep Vein Open - Infant Interaction Disposition, : in Room with Family Interaction: Holding Infant Feeding: Breastfed ; Nursed Well Support Person: - Recovery Exam Fundal Tone: Firm Fundal Level: 2 Fingerbreadths Below Umbilicus Fundal Placement: Midline Lochia Amount: Small Lochia Color: Rubra/Red Perineum Description: Intact, Minimal Bruising/Swelling Bladder Status: Indwelling Catheter in Place - Exam General: Alert, Oriented, Cooperative Lungs: Clear to Auscultation, Normal Respiratory Effort Cardiovascular: Regular Rate, Regular Rhythm GI/Abdominal Exam: Soft, Tender (appropriate ) Extremities: Normal Inspection Skin: Warm, Dry, Intact Wound/Incisions: Healing Well, Other (bruising present inferior to incision extending slightly to mons ) - Problem List & Annotations (1) 39 weeks gestation of SNOMED Code(s): 53985341 Code(s): Z3A.39 - 39 WEEKS GESTATION OF Status: Acute Current Visit: No (2) History of SNOMED Code(s): 272055027 Code(s): Z98.891 - HISTORY OF UTERINE SCAR FROM PREVIOUS SURGERY Status: Acute Current Visit: No (3) Rh negative state in antepartum period SNOMED Code(s): 426809807 Code(s): O09.899 - SUPERVISION OF OTHER HIGH RISK PREGNANCIES, UNSP TRIMESTER Status: Acute Current Visit: No (4) S/P repeat low transverse SNOMED Code(s): 293145056, 34591025, 824159488, 309809358, 225867696 Code(s): Z98.891 - HISTORY OF UTERINE SCAR FROM PREVIOUS SURGERY Status: Acute Current Visit: No - Problem List Review Problem List Initiated/Reviewed/Updated: Yes - My Orders Last 24 Hours: My Active Orders 02/27/21 06:50 CANNABINOID (THC) CONFIRM, UR Stat 02/27/21 Breakfast Regular Diet [DIET] 02/27/21 09:45 Acetaminophen/oxyCODONE [Percocet 325-5 MG] 1 tab PO Q4H PRN Acetaminophen/oxyCODONE [Percocet 325-5 MG] 2 tab PO Q4H PRN Docusate Sodium [Colace] 100 mg PO Q12H PRN Ondansetron [Zofran] 4 mg IV Q8H PRN diphenhydrAMINE [Benadryl] 25 mg IVPUSH Q6H PRN 02/27/21 09:45 Activity as Tolerated [RC] .Routine Antiembolic Devices [RC] PER UNIT ROUTINE Communication Order [RC] PER UNIT ROUTINE Communication Order [RC] PER UNIT ROUTINE Communication Order [RC] PER UNIT ROUTINE Intake and Output [RC] Q4H May Shower [RC] PER UNIT ROUTINE Notify Provider Intake and Out [RC] ASDIRECTED RT Incentive Spirometry [RC] Q2HWA Vital Signs [RC] PER UNIT ROUTINE Assess Lochia [WOMSER] Per Unit Routine Assess Uterine Involution [WOMSER] Per Unit Routine Breast Pump [WOMSER] Per Unit Routine Heat Therapy [OM.PC] Per Unit Routine Peripheral IV Discontinue [OM.PC] Routine Sequential Compression Device [OM.PC] Per Unit Routine 02/28/21 08:33 Urinary Catheter Removal [RC] Per Unit Routine - Assessment Assessment:: POD#1 - Plan Plan:: * Routine cares * Breast feeding * Baby Rh positive, to receive Rhogam * Discharge home in 1-2 days
--- NOTE | 2021-02-28 07:39 | PCM48HPAN ---
Post Anesthesia Note - EVALUATION WITHIN 48HRS OF ANESTHETIC Vital Signs in Normal Range: Yes Patient Participated in Evaluation: Yes Respiratory Function Stable: Yes Airway Patent: Yes Cardiovascular Function Stable: Yes Hydration Status Stable: Yes Pain Control Satisfactory: Yes Nausea and Vomiting Control Satisfactory: Yes Mental Status Recovered: Yes Vital Signs: Last Vital Signs Temp 36.2 C 02/28/21 05:00 Pulse 74 02/28/21 05:05 Resp 16 02/28/21 07:00 BP 110/61 02/28/21 05:05 Pulse Ox 98 02/28/21 07:00
[2021-02-28] MEDS: Acetaminophen/oxyCODONE 325-5 MG Tab PO PRN ×3 (08:30→20:29)
[2021-03-01] MEDS: Acetaminophen/oxyCODONE 325-5 MG Tab PO PRN ×2 (01:55→07:50)
--- NOTE | 2021-03-01 06:58 | PCM.PNPP ---
- General Info Date of Service: 03/01/21 Functional Status: Reports: Pain Controlled, Tolerating Diet, Ambulating, Urinating - Review of Systems General: Reports: No Symptoms Pulmonary: Reports: No Symptoms Cardiovascular: Reports: No Symptoms Gastrointestinal: Reports: Abdominal Pain (managed with medications ) Genitourinary: Reports: No Symptoms Musculoskeletal: Reports: Shoulder Pain (right sided) - Patient Data Vital Signs - Most Recent: Last Vital Signs Temp 36.6 C 03/01/21 04:39 Pulse 70 03/01/21 04:39 Resp 14 03/01/21 04:39 BP 122/77 03/01/21 04:39 Pulse Ox 96 03/01/21 04:39 Weight - Most Recent: 68.946 kg I&O - Last 24 Hours: Intake & Output 02/28/21 02/28/21 03/01/21 14:59 22:59 06:59 Intake Total 602 420 Output Total 500 Balance 602 -80 Lab Results - Last 24 Hours: Laboratory Results - last 24 hr 02/27/21 Range/Units 06:00 Blood Type Cancelled Gel Antibody Screen Cancelled Screen 0 ros/5 flds - neg RhIG Candidate? Yes Rhogam Indicated Cancelled Med Orders - Current: Current Medications Diphenhydramine HCl (Diphenhydramine 50 Mg/Ml Sdv) 25 mg IVPUSH Q6H PRN PRN Reason: Pruritis Diphenhydramine HCl (Diphenhydramine 50 Mg/Ml Sdv) 25 mg IVPUSH Q6H PRN PRN Reason: Itching or Nausea Docusate Sodium (Docusate Sodium 100 Mg Cap) 100 mg PO Q12H PRN PRN Reason: Constipation Last Admin: 02/28/21 08:30 Dose: 100 mg Documented by: Fentanyl (Fentanyl 100 Mcg/2 Ml Sdv) 50 mcg IVPUSH Q5M PRN PRN Reason: Pain Ondansetron HCl (Ondansetron 4 Mg/2 Ml Sdv) 4 mg IV Q8H PRN PRN Reason: Nausea/Vomiting Oxycodone/Acetaminophen (Acetaminophen/Oxycodone 325-5 Mg Tab) 1 tab PO Q4H PRN PRN Reason: Pain (moderate 4-6) Last Admin: 02/28/21 14:33 Dose: 1 tab Documented by: Oxycodone/Acetaminophen (Acetaminophen/Oxycodone 325-5 Mg Tab) 2 tab PO Q4H PRN PRN Reason: Pain (severe 7-10) Last Admin: 03/01/21 01:55 Dose: 2 tab Documented by: Discontinued Medications Cefazolin Sodium (Cefazolin 1 Gm Vial) Confirm Administered Dose 2 gm .ROUTE .STK-MED ONE Stop: 02/27/21 06:49 Citric Acid/Sodium Citrate (Citric Acid/Sodium Citrate Solution 30 Ml Cup) 30 ml PO ONETIME ONE Stop: 02/27/21 07:01 Last Admin: 02/27/21 07:15 Dose: 30 ml Documented by: Fentanyl (Fentanyl 100 Mcg/2 Ml Sdv) Confirm Administered Dose 100 mcg .ROUTE .STK-MED ONE Stop: 02/27/21 06:49 Cefazolin Sodium/Dextrose 2 gm (/ Premix) 50 mls @ 100 mls/hr IV ONETIME ONE Stop: 02/27/21 07:29 Oxytocin/Lactated Ringer's (Pitocin In Lr 10 Units/1,000 Ml) 10 unit in 1,000 mls @ 100 mls/hr IV [facility]ED [facility]; Protocol Lactated Ringer's (Ringers, Lactated) 1,000 mls @ 125 mls/hr IV [facility] Last Admin: 02/27/21 08:43 Dose: 500 mls/hr Documented by: Lactated Ringer's (Ringers, Lactated) Confirm Administered Dose 1,000 mls @ as directed .ROUTE .STK-MED ONE Stop: 02/27/21 07:56 Dextrose/Lactated Ringer's (Dextrose 5%-Lactated Ringers) 1,000 mls @ 125 mls/hr IV [facility]ED [facility] Stop: 02/27/21 17:44 Last Admin: 02/27/21 13:26 Dose: 125 mls/hr Documented by: Ketorolac Tromethamine (Ketorolac 30 Mg/Ml Sdv) Confirm Administered Dose 30 mg .ROUTE .STK-MED ONE Stop: 02/27/21 08:13 Ketorolac Tromethamine (Ketorolac 30 Mg/Ml Sdv) 30 mg IVPUSH Q6H [facility] Stop: 02/28/21 02:31 Last Admin: 02/28/21 04:28 Dose: 30 mg Documented by: Metoclopramide HCl (Metoclopramide 10 Mg/2 Ml Sdv) 10 mg IVPUSH ONETIME ONE Stop: 02/27/21 07:01 Last Admin: 02/27/21 07:15 Dose: 10 mg Documented by: Miscellaneous Medication (Phenylephrine Hcl In 0.9% Nacl 1 Mg/10 Ml Syringe) Confirm Administered Dose 1 mg .ROUTE .STK-MED ONE Stop: 02/27/21 07:48 Morphine Sulfate (Morphine Pf 10 Mg/10 Ml Sdv) Confirm Administered Dose 10 mg .ROUTE .STK-MED ONE Stop: 02/27/21 06:50 Ondansetron HCl (Ondansetron 4 Mg/2 Ml Sdv) Confirm Administered Dose 8 mg .ROUTE .STK-MED ONE Stop: 02/27/21 06:50 Ondansetron HCl (Ondansetron 4 Mg/2 Ml Sdv) 4 mg IVPUSH ONETIME PRN PRN Reason: Nausea/Vomiting Oxytocin (Oxytocin 10 Units/1 Ml Sdv) Confirm Administered Dose 20 unit .ROUTE .STK-MED ONE Stop: 02/27/21 06:49 Sodium Chloride (Sodium Chloride 0.9% 10 Ml Syringe) 10 ml FLUSH ASDIRECTED PRN PRN Reason: Keep Vein Open - Infant Interaction Infant Disposition, : in Room with Family Interaction: Holding Infant Feeding: Breastfed ; Nursed Well Support Person: - Recovery Exam Fundal Tone: Firm Fundal Level: 2 Fingerbreadths Below Umbilicus Fundal Placement: Midline Lochia Amount: Scant, Small Lochia Color: Rubra/Red Perineum Description: Ecchymotic Bladder Status: Voiding Urinary Elimination: Voided - Exam General: Alert, Oriented, Cooperative Lungs: Clear to Auscultation, Normal Respiratory Effort Cardiovascular: Regular Rate, Regular Rhythm GI/Abdominal Exam: Soft, Non-Tender Skin: Warm, Dry, Intact Wound/Incisions: Healing Well, Other (bruising inferior to incision darker today, but still normal ) - Problem List & Annotations (1) 39 weeks gestation of SNOMED Code(s): 57158962 Code(s): Z3A.39 - 39 WEEKS GESTATION OF Status: Acute Current Visit: No (2) History of SNOMED Code(s): 235447899 Code(s): Z98.891 - HISTORY OF UTERINE SCAR FROM PREVIOUS SURGERY Status: Acute Current Visit: No (3) Rh negative state in antepartum period SNOMED Code(s): 178390069 Code(s): O09.899 - SUPERVISION OF OTHER HIGH RISK PREGNANCIES, UNSP TRIMESTER Status: Acute Current Visit: No (4) S/P repeat low transverse SNOMED Code(s): 525860830, 34288892, 740720431, 851667324, 971762647 Code(s): Z98.891 - HISTORY OF UTERINE SCAR FROM PREVIOUS SURGERY Status: Acute Current Visit: No - Problem List Review Problem List Initiated/Reviewed/Updated: Yes - Assessment Assessment:: POD#2 - Plan Plan:: * Routine cares * Breast feeding * Baby Rh positive, received Rhogam * Discharge home today
--- NOTE | 2021-03-01 06:59 | PCM.DCSUM1 ---
Discharge Summary - Discharge Data Discharge Date: 03/01/21 Discharge Disposition: Home, Self-Care 01 Condition: Good - Referral to Home Health Primary Care Physician: Lora Granados MD - Discharge Diagnosis/Problem(s) (1) 39 weeks gestation of SNOMED Code(s): 41561292 ICD Code: Z3A.39 - 39 WEEKS GESTATION OF Status: Acute Current Visit: No (2) History of SNOMED Code(s): 171291683 ICD Code: Z98.891 - HISTORY OF UTERINE SCAR FROM PREVIOUS SURGERY Status: Acute Current Visit: No (3) Rh negative state in antepartum period SNOMED Code(s): 222770482 ICD Code: O09.899 - SUPERVISION OF OTHER HIGH RISK PREGNANCIES, UNSP TRIMESTER Status: Acute Current Visit: No (4) S/P repeat low transverse SNOMED Code(s): 822008609, [id number], [id number], 700225582, 294881194 ICD Code: Z98.891 - HISTORY OF UTERINE SCAR FROM PREVIOUS SURGERY Status: Acute Current Visit: No - Patient Summary/Data Operative Procedure(s) Performed: Repeat low transverse Complications: None Consults: None Recommended Follow-up Testing/Procedures: Follow up in 3 weeks for check Hospital Course: Patient is a 25 y/o at 39 1/7 wks who presented for planned repeat c- section. Procedure was uncomplicated. See operative note. patient did well and was discharged home on PPD#2 - Patient Instructions Diet: Regular Diet as Tolerated Activity: As Tolerated Activity, Other: Pelvic Rest for 6 weeks Driving: May Drive Today Showering/Bathing: May Shower, No Tub Bathing/Swimming Wound/Incision Care: Keep Operative Site/Wound Site Clean and Dry Notify Provider of: Fever, Increased Pain, Swelling and Redness, Drainage, Nausea and/or Vomiting - Discharge Plan *PRESCRIPTION DRUG MONITORING PROGRAM REVIEWED*: No *COPY OF PRESCRIPTION DRUG MONITORING REPORT IN PATIENT EDVIN: No Prescriptions/Med Rec: Acetaminophen/oxyCODONE [Percocet 325-5 MG] 1 - 2 tab PO Q6H PRN #20 tablet PRN Reason: Pain (Severe 7-10) Home Medications: Home Meds Acetaminophen/oxyCODONE [Percocet 325-5 MG] 1 - 2 tab PO Q6H PRN #20 tablet 02/28/21 [Rx] Docusate Sodium [Colace] 100 mg PO Q12H PRN cap 02/28/21 [Rx] Patient Handouts: Smokeless Tobacco Information, Adult, Steps to Quit Smoking Referrals: Lora Granados MD [Primary Care Provider] - (3 weeks for check ) - Discharge Summary/Plan Comment DC Time >30 min.: No - Patient Data Vitals - Most Recent: Last Vital Signs Temp 36.6 C 03/01/21 04:39 Pulse 70 03/01/21 04:39 Resp 14 03/01/21 04:39 BP 122/77 03/01/21 04:39 Pulse Ox 96 03/01/21 04:39 Weight - Most Recent: 68.946 kg I&O - Last 24 hours: Intake & Output 02/28/21 02/28/21 03/01/21 14:59 22:59 06:59 Intake Total 602 420 Output Total 500 Balance 602 -80 Lab Results - Last 24 hrs: Laboratory Results - last 24 hr 02/27/21 Range/Units 06:00 Blood Type Cancelled Gel Antibody Screen Cancelled Screen 0 ros/5 flds - neg RhIG Candidate? Yes Rhogam Indicated Cancelled Med Orders - Current: Current Medications Diphenhydramine HCl (Diphenhydramine 50 Mg/Ml Sdv) 25 mg IVPUSH Q6H PRN PRN Reason: Pruritis Diphenhydramine HCl (Diphenhydramine 50 Mg/Ml Sdv) 25 mg IVPUSH Q6H PRN PRN Reason: Itching or Nausea Docusate Sodium (Docusate Sodium 100 Mg Cap) 100 mg PO Q12H PRN PRN Reason: Constipation Last Admin: 02/28/21 08:30 Dose: 100 mg Documented by: Fentanyl (Fentanyl 100 Mcg/2 Ml Sdv) 50 mcg IVPUSH Q5M PRN PRN Reason: Pain Ondansetron HCl (Ondansetron 4 Mg/2 Ml Sdv) 4 mg IV Q8H PRN PRN Reason: Nausea/Vomiting Oxycodone/Acetaminophen (Acetaminophen/Oxycodone 325-5 Mg Tab) 1 tab PO Q4H PRN PRN Reason: Pain (moderate 4-6) Last Admin: 02/28/21 14:33 Dose: 1 tab Documented by: Oxycodone/Acetaminophen (Acetaminophen/Oxycodone 325-5 Mg Tab) 2 tab PO Q4H PRN PRN Reason: Pain (severe 7-10) Last Admin: 03/01/21 01:55 Dose: 2 tab Documented by: Discontinued Medications Cefazolin Sodium (Cefazolin 1 Gm Vial) Confirm Administered Dose 2 gm .ROUTE .STK-MED ONE Stop: 02/27/21 06:49 Citric Acid/Sodium Citrate (Citric Acid/Sodium Citrate Solution 30 Ml Cup) 30 ml PO ONETIME ONE Stop: 02/27/21 07:01 Last Admin: 02/27/21 07:15 Dose: 30 ml Documented by: Fentanyl (Fentanyl 100 Mcg/2 Ml Sdv) Confirm Administered Dose 100 mcg .ROUTE .STK-MED ONE Stop: 02/27/21 06:49 Cefazolin Sodium/Dextrose 2 gm (/ Premix) 50 mls @ 100 mls/hr IV ONETIME ONE Stop: 02/27/21 07:29 Oxytocin/Lactated Ringer's (Pitocin In Lr 10 Units/1,000 Ml) 10 unit in 1,000 mls @ 100 mls/hr IV ASDIRECTED [facility]; Protocol Lactated Ringer's (Ringers, Lactated) 1,000 mls @ 125 mls/hr IV ASDIRECTED [facility] Last Admin: 02/27/21 08:43 Dose: 500 mls/hr Documented by: Lactated Ringer's (Ringers, Lactated) Confirm Administered Dose 1,000 mls @ as directed .ROUTE .STK-MED ONE Stop: 02/27/21 07:56 Dextrose/Lactated Ringer's (Dextrose 5%-Lactated Ringers) 1,000 mls @ 125 mls/hr IV ASDIRECTED JIMI Stop: 02/27/21 17:44 Last Admin: 02/27/21 13:26 Dose: 125 mls/hr Documented by: Ketorolac Tromethamine (Ketorolac 30 Mg/Ml Sdv) Confirm Administered Dose 30 mg .ROUTE .STK-MED ONE Stop: 02/27/21 08:13 Ketorolac Tromethamine (Ketorolac 30 Mg/Ml Sdv) 30 mg IVPUSH Q6H [facility] Stop: 02/28/21 02:31 Last Admin: 02/28/21 04:28 Dose: 30 mg Documented by: Metoclopramide HCl (Metoclopramide 10 Mg/2 Ml Sdv) 10 mg IVPUSH ONETIME ONE Stop: 02/27/21 07:01 Last Admin: 02/27/21 07:15 Dose: 10 mg Documented by: Miscellaneous Medication (Phenylephrine Hcl In 0.9% Nacl 1 Mg/10 Ml Syringe) Confirm Administered Dose 1 mg .ROUTE .STK-MED ONE Stop: 02/27/21 07:48 Morphine Sulfate (Morphine Pf 10 Mg/10 Ml Sdv) Confirm Administered Dose 10 mg .ROUTE .STDealerRater-MED ONE Stop: 02/27/21 06:50 Ondansetron HCl (Ondansetron 4 Mg/2 Ml Sdv) Confirm Administered Dose 8 mg .ROUTE .STDealerRater-MED ONE Stop: 02/27/21 06:50 Ondansetron HCl (Ondansetron 4 Mg/2 Ml Sdv) 4 mg IVPUSH ONETIME PRN PRN Reason: Nausea/Vomiting Oxytocin (Oxytocin 10 Units/1 Ml Sdv) Confirm Administered Dose 20 unit .ROUTE .STK-MED ONE Stop: 02/27/21 06:49 Sodium Chloride (Sodium Chloride 0.9% 10 Ml Syringe) 10 ml FLUSH ASDIRECTED PRN PRN Reason: Keep Vein Open
[2021-03-01 09:58] VITALS: BP 107/75; PULSE 103
== END 2021-03-01 11:30 | disposition home or self-care (01) | DRG 788 ==
LOC: JD.OB 05:34
PROVIDERS: ADMIT Obstetrics & Gynecology; ATTEND Obstetrics & Gynecology
PROC: 10D00Z1 Extraction of Products of Conception, Low, Open Approach (ICD-10-PCS; principal; 2021-02-27)
PROC: 3E0334Z Introduction of Serum, Toxoid and Vaccine into Peripheral Vein, Percutaneous Approach (ICD-10-PCS; 2021-02-28)
DX: O34.211 Maternal care for low transverse scar from previous cesarean delivery (principal); Z37.0 Single live birth; O99.334 Smoking (tobacco) complicating childbirth; F17.290 Nicotine dependence, other tobacco product, uncomplicated; Z20.822 Contact with and (suspected) exposure to COVID-19; Z3A.39 39 weeks gestation of pregnancy; O26.893 Other specified pregnancy related conditions, third trimester; Z67.41 Type O blood, Rh negative
CPT/HCPCS: 01961; 36415; 59025; 80306; 85025; 85027; 85461; 86592; 86803; 86850; 86870; 86900; 86901; 94762; A9270-GY; G0480; J0690; J1885; J2270; J2370; J2405; J2590; J2765; J2790; J3010; J7120; J7121; U0002